=== PATIENT | female | born 1980 | race Caucasian/White ===

== ENCOUNTER 2020-11-10 18:51 | Observation (INO) | payer OTHER ==
[~2020-11-10] VITALS: Ht 162.6 cm; Wt 88.5 kg
[2020-11-10] MEDS ORDERED: FERR325T6 PO (19:52)
[2020-11-10] MEDS ORDERED: PREN1TAB78 PO (19:52)
[2020-11-10 20:44] LABS: CLARITY URINE CLEAR (CLEAR); COLOR URINE YELLOW (YELLOW); KETONES URINE NEGATIVE (NEGATIVE); LEUKOCYTE ESTERASE URINE 1+ (NEGATIVE); NITRITE URINE NEGATIVE (NEGATIVE); OCCULT BLOOD URINE NEGATIVE (NEGATIVE); PROTEIN URINE NEGATIVE (NEGATIVE); SPECIFIC GRAVITY URINE 1.006 (1.005-1.030); UROBILINOGEN URINE 0.2 E.U./dL (0.2-1.0)
== END 2020-11-10 22:30 | disposition home or self-care (01) ==
LOC: 8 EST LDRP 18:51
PROVIDERS: ADMIT Obstetrics & Gynecology; ATTEND Obstetrics & Gynecology
DX: O34.63 Maternal care for abnormality of vagina, third trimester (principal); O09.523 Supervision of elderly multigravida, third trimester; Z79.899 Other long term (current) drug therapy; Z3A.33 33 weeks gestation of pregnancy
CPT/HCPCS: 59025; 81003; 86694; G0378; 99281

== ENCOUNTER 2020-11-21 09:15 | Inpatient (IN) | payer OTHER ==
[~2020-11-21] VITALS: Ht 162.6 cm; Wt 87.5 kg
[~2020-11-21 09:15] MED LIST: FERR325T6 PO; PREN1TAB78 PO
[2020-11-21 10:07] LABS: CLARITY URINE CLOUDY (CLEAR); COLOR URINE YELLOW (YELLOW); KETONES URINE NEGATIVE (NEGATIVE); LEUKOCYTE ESTERASE URINE 3+ (NEGATIVE); NITRITE URINE NEGATIVE (NEGATIVE); OCCULT BLOOD URINE 2+ (NEGATIVE); PH URINE 7.5 (4.5-8.0); PROTEIN URINE NEGATIVE (NEGATIVE); SPECIFIC GRAVITY URINE 1.015 (1.005-1.030); UROBILINOGEN URINE 0.2 E.U./dL (0.2-1.0)
[2020-11-21] MEDS ORDERED: LIDOCAINE HCL 1% 20ML VIAL (Pyxis) INJ INFIL SCH (12:00)
[2020-11-21] MEDS ORDERED: DEXT 5%/LR + PITOCIN 20UNITS/L 1,000 ML IV SCH (12:00)
[2020-11-21] MEDS ORDERED: NALOXONE HCL 0.4 MG/ML 1ML VIAL IM PRN (12:00)
[2020-11-21] MEDS ORDERED: METHYLERGONOVINE MALEATE 0.2 MG/ML IM PRN (12:00)
[2020-11-21] MEDS ORDERED: CARBOPROST TROMETHAMINE 250 MCG/ML AMPUL IM PRN (12:00)
[2020-11-21] MEDS: LACTATED RINGERS 1,000 ML IV SCH ×3 (12:51→21:37)
[2020-11-21] MEDS ORDERED: CEFAZOLIN 2,000 MG in DEXT 5% WATER 100 ML IV SCH (13:00)
[2020-11-21] MEDS ORDERED: BUTORPHANOL TARTRATE 2 MG/ML VIAL IM PRN (13:30)
[2020-11-21 13:48] LABS: BASOPHILS % 0.4 % (0.0-2.0); EOSINOPHILS % 0.5 % (0.0-5.0); HEMATOCRIT. 37.1 % (36.0-48.0); HEMOGLOBIN. 12.2 g/dL (12.0-16.0); LYMPHOCYTES % 21.6 % (20.0-50.0); MEAN CORPUSCULAR HEMOGLOBIN 29.6 pg (28.0-32.0); MEAN CORPUSCULAR VOLUME 90.2 fL (81.0-99.0); MEAN PLATELET VOLUME 9.1 fl (7.4-10.4); MONOCYTES % 5.7 % (2.0-8.0); NEUTROPHILS % 71.8 % (40.0-76.0); PLATELET 258 x1000/uL (130-400); RED BLOOD CELL COUNT 4.11 mill/uL (4.2-5.4); RED CELL DISTRIBUTION WIDTH 13.8 % (11.6-14.6)
[2020-11-21 13:59] LABS: INR 0.9; PARTIAL THROMBOPLASTIN TIME 27.1 sec (23.4-31.0); PROTHROMBIN TIME 10.2 sec (9.6-11.0)
[2020-11-21 14:35] LABS: HEPATITIS B SURFACE ANTIGEN NEGATIVE
[2020-11-21] MEDS ORDERED: ROPIVACAINE HCL/PF EPIDURAL 200 ML EPI SCH (15:45)
[2020-11-21 16:25] LABS: *AMPHETAMINES SCREEN URINE NEGATIVE (NEGATIVE)
[2020-11-21 16:26] LABS: *BARBITURATES SCREEN URINE NEGATIVE (NEGATIVE); *BENZODIAZEPINES SCREEN URINE NEGATIVE (NEGATIVE); *COCAINE SCREEN URINE NEGATIVE (NEGATIVE)
[2020-11-21 16:30] LABS: METHADONE URINE SCREEN NEGATIVE (NEGATIVE); OPIATES URINE SCREEN NEGATIVE (NEGATIVE)
[2020-11-21 16:31] LABS: CANNABINOID URINE SCREEN NEGATIVE (NEGATIVE)
[2020-11-21 16:32] LABS: PHENCYCLIDINE URINE SCREEN NEGATIVE (NEGATIVE)
[2020-11-21] MEDS ORDERED: BETAMETHASONE ACET/BETAMET 30 MG/5 ML VIAL IM SCH (21:00)
[2020-11-22] MEDS: LACTATED RINGERS 1,000 ML IV SCH ×2 (05:54→22:26)
[2020-11-22] MEDS ORDERED: BETAMETHASONE ACET/BETAMET 30 MG/5 ML VIAL IM SCH (08:40)
[2020-11-22] MEDS ORDERED: LIDOCAINE HCL 1% 20ML VIAL (Pyxis) INJ INFIL SCH (15:30)
[2020-11-22] MEDS ORDERED: METHYLERGONOVINE MALEATE 0.2 MG/ML IM PRN (15:30)
[2020-11-22] MEDS ORDERED: BUTORPHANOL TARTRATE 2 MG/ML VIAL IV PRN (15:30)
[2020-11-22] MEDS: DEXT 5%/LR + PITOCIN 20UNITS/L 1,000 ML IV SCH (17:26)
[2020-11-22] MEDS ORDERED: PENICILLIN G POTASSIUM 5 MMU in DEXT 5% WATER 100 ML IV SCH (20:00)
[2020-11-22] MEDS ORDERED: ROPIVACAINE HCL/PF EPIDURAL 200 ML EPI ONE (23:21)
[2020-11-22] MEDS: PENICILLIN G POTASSIUM 2.5 MMU in DEXTROSE 5% WATER 50 ML IV SCH (23:49)
[2020-11-23] MEDS: PENICILLIN G POTASSIUM 2.5 MMU in DEXTROSE 5% WATER 50 ML IV SCH (03:53)
[2020-11-23] MEDS: LACTATED RINGERS 1,000 ML IV SCH (06:00)
[2020-11-23] MEDS ORDERED: DIPHENHYDRAMINE 25MG CAPSULE PO PRN (07:30)
[2020-11-23] MEDS ORDERED: IBUPROFEN 400MG TABLET PO PRN (07:30)
[2020-11-23] MEDS ORDERED: GLYCERIN/WITCH HAZEL LEAF MEDICATED PAD TOP PRN (07:30)
[2020-11-23] MEDS ORDERED: IBUPROFEN 800MG TABLET PO PRN (07:30)
[2020-11-23] MEDS ORDERED: BENZOCAINE/LANOLIN/ALOE VERA SPRAY TOP PRN (07:30)
[2020-11-23] MEDS ORDERED: LANOLIN OINT 7GM TUBE TOP PRN (07:30)
[2020-11-23] MEDS ORDERED: RHO(D) IMMUNE GLOBULIN 300 MCG/SYR IM PRN (07:30)
[2020-11-23] MEDS ORDERED: DEXT 5%/LR + PITOCIN 20UNITS/L 1,000 ML IV SCH (07:30)
[2020-11-23] MEDS ORDERED: HEMORRHOIDAL SUPP PR PRN (07:30)
[2020-11-23] MEDS ORDERED: BISACODYL 10MG SUPP PR PRN (07:30)
[2020-11-23] MEDS ORDERED: ACETAMINOPHEN WITH CODEINE 300/30MG TABLET PO PRN (07:30)
[2020-11-23] MEDS: DEXT 5%/LR + PITOCIN 20UNITS/L 1,000 ML IV SCH (08:58)
[2020-11-23 09:00] VITALS: BP 122/70
[2020-11-23] MEDS ORDERED: PRENATAL VIT/FE FUMARATE/FA TABLET PO SCH (09:00)
[2020-11-23 09:30] VITALS: BP 120/65
[2020-11-23 10:00] VITALS: BP 122/68
[2020-11-23] MEDS: MAGNESIUM/ALUMINUM HYDROXIDE/SIMETHICONE 30ML UDC PO SCH ×3 (12:30→21:08)
[2020-11-23] MEDS: SIMETHICONE 80MG TABLET CHEW PO SCH ×3 (13:00→21:08)
[2020-11-23] MEDS ORDERED: TETANUS, DIPHTHERIA, PERTUSSIS VAC/PF 0.5ML (>7YR OLD) IM ONE (15:45)
[2020-11-23 16:37] VITALS: BP 121/76
[2020-11-23 19:40] VITALS: BP 115/67
[2020-11-23] MEDS ORDERED: DOCUSATE SODIUM 100MG CAPSULE PO SCH (21:00)
[2020-11-24 04:00] VITALS: BP 107/61
[2020-11-24 06:42] LABS: BASOPHILS % 0.2 % (0.0-2.0); EOSINOPHILS % 1.4 % (0.0-5.0); HEMATOCRIT. 26.9 % (36.0-48.0); HEMOGLOBIN. 9.5 g/dL (12.0-16.0); LYMPHOCYTES % 26.8 % (20.0-50.0); MEAN CORPUSCULAR HEMOGLOBIN 30.8 pg (28.0-32.0); MEAN CORPUSCULAR VOLUME 87.8 fL (81.0-99.0); MEAN PLATELET VOLUME 8.5 fl (7.4-10.4); MONOCYTES % 5.9 % (2.0-8.0); NEUTROPHILS % 65.7 % (40.0-76.0); PLATELET 192 x1000/uL (130-400); RED BLOOD CELL COUNT 3.07 mill/uL (4.2-5.4)
[2020-11-24 07:30] VITALS: BP 110/72
[2020-11-24] MEDS ORDERED: FERROUS SULFATE 325MG TABLET PO SCH (07:30)
[2020-11-24] MEDS: MAGNESIUM/ALUMINUM HYDROXIDE/SIMETHICONE 30ML UDC PO SCH (08:56)
[2020-11-24] MEDS: SIMETHICONE 80MG TABLET CHEW PO SCH (08:56)
[2020-11-24] MEDS ORDERED: IBUP-2030 PO (10:59)
== END 2020-11-24 12:30 | disposition home or self-care (01) | DRG 560 ==
LOC: OBSVTOIN 09:15 → 8 EST LDRP 09:15 → 8EST 11-23 08:53
PROVIDERS: ADMIT Obstetrics & Gynecology; ATTEND Obstetrics & Gynecology
PROC: 10E0XZZ Delivery of Products of Conception, External Approach (ICD-10-PCS; principal; 2020-11-21)
PROC: 3E0R3BZ Introduction of Anesthetic Agent into Spinal Canal, Percutaneous Approach (ICD-10-PCS; 2020-11-21)
PROC: 00HU33Z Insertion of Infusion Device into Spinal Canal, Percutaneous Approach (ICD-10-PCS; 2020-11-21)
DX: O60.14X0 Preterm labor third trimester with preterm delivery third trimester, not applicable or unspecified (principal); Z37.0 Single live birth; O41.03X0 Oligohydramnios, third trimester, not applicable or unspecified; Z20.822 Contact with and (suspected) exposure to COVID-19; Z3A.34 34 weeks gestation of pregnancy; O46.93 Antepartum hemorrhage, unspecified, third trimester
CPT/HCPCS: 36415; 76805; 76815; 76818; 80305; 81003; 85025; 86592; 86703; 86762; 86850; 86886; 86900; 87340; 87426; 90384; 90715; 99281; J0690; J0702; J2540; J2590; J2795; J7060; J7120

== ENCOUNTER 2021-04-23 00:02 | Emergency (ER) | payer MEDICAID, OTHER ==
[~2021-04-23] VITALS: Ht 162.6 cm; Wt 73.0 kg
[~2021-04-23 00:02] MED LIST changes: -FERR325T6 PO; +IBUP-2030 PO; -PREN1TAB78 PO
[2021-04-23 01:11] LABS: BASOPHILS % 0.5 % (0.0-2.0); EOSINOPHILS % 0.9 % (0.0-5.0); HEMATOCRIT. 40.5 % (36.0-48.0); LYMPHOCYTES % 17.3 % (20.0-50.0); MEAN CORPUSCULAR HEMOGLOBIN 28.5 pg (28.0-32.0); MEAN CORPUSCULAR VOLUME 88.5 fL (81.0-99.0); MEAN PLATELET VOLUME 7.7 fl (7.4-10.4); MONOCYTES % 3.1 % (2.0-8.0); NEUTROPHILS % 78.2 % (40.0-76.0); PLATELET 348 x1000/uL (130-400); RED BLOOD CELL COUNT 4.57 mill/uL (4.2-5.4); RED CELL DISTRIBUTION WIDTH 14.4 % (11.6-14.6)
[2021-04-23 01:18] LABS: CHLORIDE 107 mEq/L (98-107)
[2021-04-23 01:20] LABS: HCG SCREEN NEGATIVE
[2021-04-23] MEDS ORDERED: PROT20 MT (02:12)
[2021-04-23] MEDS ORDERED: PANTOPRAZOLE 40MG DR TABLET PO ONE (02:15)
[2021-04-23 02:34] VITALS: BP 119/83
== END 2021-04-23 02:36 | disposition home or self-care (01) ==
LOC: ER 00:02
DX: R07.9 Chest pain, unspecified (principal); R10.13 Epigastric pain; R74.01 Elevation of levels of liver transaminase levels; E87.6 Hypokalemia; D72.829 Elevated white blood cell count, unspecified; Z98.890 Other specified postprocedural states
CPT/HCPCS: 36415; 71045; 80053; 81025; 83880; 84484; 84703; 85025; 93005; 99285

== ENCOUNTER 2021-07-15 21:31 | Emergency (ER) | payer MEDICAID, OTHER ==
[~2021-07-15] VITALS: Ht 165.1 cm; Wt 78.2 kg
[~2021-07-15 21:31] MED LIST changes: +PROT20 MT
[2021-07-15] MEDS ORDERED: TETRACAINE 0.5% OPHTH DROPS 4ML RIGHTEYE ONE (23:00)
[2021-07-15] MEDS ORDERED: FLUORESCEIN SODIUM 1MG/STRIP EACHEYE ONE (23:00)
[2021-07-16] MEDS ORDERED: FLUORESCEIN SODIUM 1MG/STRIP EACHEYE NR (00:30)
[2021-07-16] MEDS ORDERED: TETRACAINE 0.5% OPHTH DROPS 4ML RIGHTEYE NR (00:30)
[2021-07-16] MEDS ORDERED: LEVO5DRO20 RIGHTEYE (00:47)
[2021-07-16 01:45] VITALS: BP 121/79
== END 2021-07-16 01:46 | disposition home or self-care (01) ==
LOC: ER 21:31
DX: H10.021 Other mucopurulent conjunctivitis, right eye (principal)
CPT/HCPCS: 99283

== ENCOUNTER 2023-08-26 10:55 | Emergency (ER) | payer MEDICAID, OTHER ==
[~2023-08-26] VITALS: Ht 162.6 cm; Wt 75.0 kg
[~2023-08-26 10:55] MED LIST changes: +LEVO5DRO20 RIGHTEYE
[2023-08-26 11:02] VITALS: BP 139/108; PULSE 89; RESP 18; TEMP 98.5; O2SAT 100
[2023-08-26 11:36] LABS: BASOPHILS % 1.8 % (0.0-2.0); HEMATOCRIT. 37.5 % (36.0-48.0); HEMOGLOBIN. 12.8 g/dL (12.0-16.0); MEAN CORPUSCULAR HEMOGLOBIN 29.9 pg (28.0-32.0); MEAN CORPUSCULAR HGB CONC 34.2 g/dL (31.0-37.0); MEAN CORPUSCULAR VOLUME 87.5 fL (81.0-99.0); MEAN PLATELET VOLUME 8.2 fl (7.4-10.4); MONOCYTES % 8.5 % (2.0-8.0); NEUTROPHILS % 44.7 % (40.0-76.0); PLATELET 292 x1000/uL (130-400); RED BLOOD CELL COUNT 4.29 mill/uL (4.2-5.4); RED CELL DISTRIBUTION WIDTH 14.8 % (11.6-14.6)
[2023-08-26 11:52] LABS: CHLORIDE 107 mEq/L (98-107); POTASSIUM 3.6 mEq/L (3.5-5.1); SODIUM 139 mEq/L (136-145)
[2023-08-26 11:53] LABS: CALCIUM 9.7 mg/dL (8.7-10.4); CARBON DIOXIDE 24 mEq/L (21-32)
[2023-08-26 11:58] LABS: CREATININE 0.7 mg/dL (0.6-1.0); GLUCOSE 101 mg/dL (70-105); UREA NITROGEN BLOOD 9 mg/dL (9-23)
[2023-08-26 12:21] LABS: TROPONIN I HIGH SENSITIVITY < 4 ng/L (3.0-34)
== END 2023-08-26 13:59 | disposition home or self-care (01) ==
LOC: ER 10:55
DX: F45.8 Other somatoform disorders (principal)
CPT/HCPCS: 36415; 71045; 80048; 84484; 85025; 93005; 99285